=== PATIENT | female | born 1985 | race Caucasian/White ===

== ENCOUNTER 2020-10-19 23:36 | Observation (INO) | payer OTHER | END 2020-10-20 00:58 | disposition home or self-care (01) | LOC: SPU 23:36 | PROVIDERS: ADMIT Obstetrics & Gynecology; ATTEND Obstetrics & Gynecology | DX: O42.913 Preterm premature rupture of membranes, unspecified as to length of time between rupture and onset of labor, third trimester (principal); Z3A.31 31 weeks gestation of pregnancy | CPT/HCPCS: 81002; G0378 ==

== ENCOUNTER 2021-07-25 01:06 | Emergency (ER) | payer OTHER ==
[2021-07-25 01:10] VITALS: BP_SYST 143
--- NOTE | 2021-07-25 01:10 | NUR ---
Patient to ER bed 4 to gown for evaluation. Side rails up. Report given to self.
[2021-07-25] MEDS ORDERED: DIPH-TET-PERTUS Vaccine 0.5 ML VIAL (ADACEL) I.M. ONE (01:30)
[2021-07-25] MEDS ORDERED: BACITRACIN 1 GM OINT TP ONE (01:30)
[2021-07-25] MEDS ORDERED: LIDOCAINE 1% 10 MG/ML, 20 ML MDV SUBCUT ONE (01:30)
--- NOTE | 2021-07-25 01:43 | NUR ---
patient medicated as ordered. suture tray set up at bedside. positioned patient for comfort. will observe for any adverse reaction.
--- NOTE | 2021-07-25 02:20 | NUR ---
Site to left hand cleansed with normal saline and betadine. Site measures approximately 1cm x3 (left 3rd, 4th, and 5th finger). non-adhesive dressing applied. Tetanus vaccination updated.
[2021-07-25] MEDS ORDERED: IBUP-1969 PO (02:36)
[2021-07-25 02:45] VITALS: BP_SYST 139
--- NOTE | 2021-07-25 02:45 | NUR ---
Patient given written and verbal discharge instructions and verbalizes understanding. ER MD discussed with patient the results and treatment provided. Patient in stable condition. ID arm band removed. Rx of ibuprofen given. Patient educated on pain management and to follow up with PMD. Pain Scale 0. Opportunity for questions provided and answered. Medication side effect fact sheet provided.
== END 2021-07-25 02:45 | disposition home or self-care (01) ==
LOC: SED 01:06
DX: S61.213A Laceration without foreign body of left middle finger without damage to nail, initial encounter (principal); S61.215A Laceration without foreign body of left ring finger without damage to nail, initial encounter; S61.217A Laceration without foreign body of left little finger without damage to nail, initial encounter; W25.XXXA Contact with sharp glass, initial encounter; Y93.89 Activity, other specified; Y92.89 Other specified places as the place of occurrence of the external cause; Y99.8 Other external cause status
CPT/HCPCS: 12002; 90471; 90715; 99283; J2001

== ENCOUNTER 2021-08-09 15:26 | Emergency (ER) | payer OTHER ==
[~2021-08-09] VITALS: Ht 157.5 cm; Wt 72.6 kg
[~2021-08-09 15:26] MED LIST: IBUP-1969 PO
--- NOTE | 2021-08-09 15:36 | NUR ---
Patient to ER bed 05 to gown for evaluation. Side rails up.
[2021-08-09 15:37] VITALS: BP_SYST 136
--- NOTE | 2021-08-09 15:45 | NUR ---
patient alert, oriented x4 walking to er for left hand suture removal, no redness, dry, no pain. suture removed skin intact tolerated well.
--- NOTE | 2021-08-09 15:49 | NUR ---
Patient given written and verbal discharge instructions and verbalizes understanding. ER MD discussed with patient the results and treatment provided. Patient in stable condition. ID arm band removed. Patient educated on pain management and to follow up with PMD. Pain Scale . Opportunity for questions provided and answered. Medication side effect fact sheet provided.
[2021-08-09] MEDS ORDERED: BACITRACIN 1 GM OINT TP ONE ×2 (15:57→16:00)
== END 2021-08-09 15:49 | disposition home or self-care (01) ==
LOC: SED 15:26
DX: S61.412D Laceration without foreign body of left hand, subsequent encounter (principal); Z79.899 Other long term (current) drug therapy; Z48.02 Encounter for removal of sutures; W45.8XXD Other foreign body or object entering through skin, subsequent encounter
CPT/HCPCS: 99282